=== PATIENT | female | born 1975 | race Two or more races ===

== ENCOUNTER → 2020-01-23 | Outpatient (CLI) | payer SELFPAY ==
[2020-01-24 16:10] LABS: HPV 16 Negative (Negative); HPV 18 Negative (Negative); HPV OTHER HR TYPES Negative (Negative)
== END | disposition home or self-care (01) ==
LOC: LAB SHORT 10:20 → LAB 10:20
PROVIDERS: Advanced Practice Midwife
DX: Z01.419 Encounter for gynecological examination (general) (routine) without abnormal findings (principal)
CPT/HCPCS: 87624; G0123

== ENCOUNTER → 2021-06-08 | Outpatient (CLI) | payer OTHER ==
[2021-06-10 15:11] LABS: HPV 16 Negative (Negative); HPV 18 Negative (Negative); HPV OTHER HR TYPES Negative (Negative)
== END | disposition home or self-care (01) ==
LOC: LAB SHORT 16:50 → LAB 16:50
PROVIDERS: Obstetrics & Gynecology
DX: Z01.419 Encounter for gynecological examination (general) (routine) without abnormal findings (principal)
CPT/HCPCS: 87624; G0123

== ENCOUNTER → 2021-09-23 | Outpatient (CLI) | payer OTHER | END | disposition home or self-care (01) | LOC: LAB SHORT 13:56 | DX: N92.0 Excessive and frequent menstruation with regular cycle (principal) | CPT/HCPCS: 88305 ==

== ENCOUNTER 2021-10-04 07:22 | Day surgery (SDC) | payer OTHER ==
[~2021-10-04] VITALS: Ht 160 cm; Wt 70.2 kg
[2021-10-04] MEDS ORDERED: PARO20 PO (08:35)
[2021-10-04] MEDS ORDERED: PAROXETINE ER25 MG PO (08:35)
[2021-10-04] MEDS ORDERED: TIZA4 PO (08:36)
[2021-10-04] MEDS ORDERED: CYCL10 PO (08:37)
--- NOTE | 2021-10-04 09:23 | NUR ---
2 FAILED IV ATTEMPTS BY ORD.RMA L HAND, R WRIST
--- NOTE | 2021-10-04 09:23 | NUR ---
Patient confirms NPO status and agrees with scheduled surgery. Pre-Op teaching done. Pt verbalizes understanding. Patient States Post-Procedure ride home has been arranged.
--- NOTE | 2021-10-04 12:10 | NUR ---
10/04/21 1210 [place] 52CC OF CLEAR YELLOW URINE UPON D/C AT END OF OR CASE IN OR
--- NOTE | 2021-10-04 16:45 | NUR ---
DISCHARGE: DISCHARGE INSTUCTIONS GIVEN TO PATIENT AT THIS TIME. PATIENT VERBALIZED UNDERSTANDING. PATIENT VOIDING WELL, AMBULATING WELL, PAIN MEDS ARE EFFECTIVE AND TOLERATING PO INTAKE WELL. PATIENT IS READY TO GO HOME. NO SIGNS OR SYMPTOMS ACUTE DISTRESS NOTED. PRESCRIPTION GIVEN TO PATIENT AT THIS TIME FOR PAIN MEDICATIONS. AWAITING ARRIVAL OF HER RIDE HOME. IV REMOVED.
== END 2021-10-04 17:36 | disposition home or self-care (01) ==
LOC: ORSCMMR 07:22 → SURS 12:47 → ORSCMMR 17:36 → ORD 10-11 09:30
PROVIDERS: Obstetrics & Gynecology
PROC: 0UT7FZZ Resection of Bilateral Fallopian Tubes, Via Natural or Artificial Opening With Percutaneous Endoscopic Assistance (ICD-10-PCS; principal; 2021-10-04 09:30)
PROC: 0UT9FZZ Resection of Uterus, Via Natural or Artificial Opening With Percutaneous Endoscopic Assistance (ICD-10-PCS; principal; 2021-10-04 09:30)
DX: N92.0 Excessive and frequent menstruation with regular cycle (principal); N80.0 Endometriosis of uterus; F41.8 Other specified anxiety disorders; D50.9 Iron deficiency anemia, unspecified; Z79.899 Other long term (current) drug therapy
CPT/HCPCS: 88307; A9270; J0171; J0690; J1100; J1885; J2250; J2370; J2405; J2704; J3010; J7120

== ENCOUNTER → 2021-11-17 | Outpatient (CLI) | payer OTHER ==
[~2021-11-17] MED LIST: CYCL10 PO; PARO20 PO; PAROXETINE ER25 MG PO; TIZA4 PO
[2021-11-18 11:30] LABS: Candida species (DNA Probe) Negative (NEGATIVE); G. vaginalis (DNA Probe) Positive (NEGATIVE); T. vaginalis (DNA Probe) Negative (NEGATIVE)
== END | disposition home or self-care (01) ==
LOC: LAB SHORT 17:01
PROVIDERS: Obstetrics & Gynecology
DX: N89.8 Other specified noninflammatory disorders of vagina (principal)
CPT/HCPCS: 87480; 87510; 87660